=== PATIENT | female | born 1990 | race Caucasian/White ===

== ENCOUNTER 2016-06-09 16:08 | Emergency (ER) | payer MEDICAID ==
[2016-06-09] MEDS ORDERED: NS 1,000 ML IV ONE ×3 (17:05→17:46)
[2016-06-09] MEDS ORDERED: ONDANSETRON 4 MG/2 ML VIAL IVP ONE (17:46)
--- NOTE | 2016-06-09 17:49 | EDPHY ---
H & P Time Seen by Provider: 06/09/16 16:54 HPI/ROS: Chief complaint. Vomiting HPI. 25-year-old female vomiting that began today. Unable to keep fluids and seizure medication down. Her and infant child are both sick with similar symptoms. No abdominal pain no diarrhea. Otherwise no recent travel. ROS Constitutional. Subjective fever Eyes. no problems with vision ENT. no sore throat, no nasal drainage Cardiovascular. no chest pain Respiratory. no shortness of breath, no cough Abdominal. Nausea and vomiting . no problems urinating MS. no calf pain/swelling, no neck/back pain, no joint pain Skin. no rash Lymph. no swollen glands Neuro. no headache, no dizziness, no difficulty walking or with speech Past Medical/Surgical History: Celiac disease and seizure disorder Social History: , nonsmoker, no alcohol Smoking Status: Former smoker Physical Exam: General Appearance: Alert well-developed female mild distress vital signs show a heart rate 122 Eyes: Pupils equal and round no pallor or injection. ENT, mucous membranes are dry Respiratory: There are no retractions, lungs are clear to auscultation. Cardiovascular: Regular rate and rhythm. Gastrointestinal: Abdomen is soft and nontender, no masses, bowel sounds normal. Neurological: Awake and alert, sensory and motor exams grossly normal. Skin: Warm and dry, no rashes. Musculoskeletal: Neck is supple nontender. Extremities symmetrical, full range of motion. Psychiatric: Patient is oriented X 3, there is no agitation. Constitutional: Initial Vital Signs Temperature (C) 37.2 C 06/09/16 16:19 Heart Rate 122 H 06/09/16 16:19 Respiratory Rate 20 06/09/16 16:19 Blood Pressure 101/70 06/09/16 16:19 O2 Sat (%) 98 06/09/16 16:19 O2 Delivery Mode Room Air Allergies/Adverse Reactions: cefaclor [From Ceclor] Allergy (Verified 06/09/16 16:17) gluten Allergy (Verified 06/09/16 16:17) sulfamethoxazole [From Septra] Allergy (Verified 06/09/16 16:17) trimethoprim [From Janra] Allergy (Verified 06/09/16 16:17) Home Medications: Medication Instructions Recorded Ondansetron Odt [Zofran Odt] 4 mg PO Q4PRN PRN #4 tab 06/09/16 Trileptal 06/09/16 Medical Decision Making Procedures: IV normal saline with initial target of 2 L. Zofran for nausea ED Course/Re-evaluation: Re-evaluation at 7:20 p.m.. Patient has had 3 L of fluid. She has been up to the bathroom to urinate. She is taking oral fluids without nausea or vomiting. She is feeling better Patient and I discussed laboratory evaluation, treatment plan including criteria for return importance of follow-up further evaluation. She expresses understanding and agreement Differential Diagnosis: The patient's family is ill and I suspect that this is a gastroenteritis type picture. I did consider appendicitis and other cause of acute abdomen. I considered dehydration as well as electrolyte abnormalities. - Data Points Laboratory Results: Laboratory Results 06/09/16 16:34 06/09/16 16:34 06/09/16 16:34 WBC 7.59 10^3/uL (3.80-9.50) RBC 4.73 10^6/uL (4.18-5.33) Hgb 16.0 g/dL (12.6-16.3) Hct 44.0 % (38.0-47.0) MCV 93.0 fL (81.5-99.8) MCH 33.8 pg (27.9-34.1) MCHC 36.4 g/dL (32.4-36.7) RDW 11.9 % (11.5-15.2) Plt Count 230 10^3/uL (150-400) MPV 10.8 fL (8.7-11.7) Neut % (Auto) 90.6 H % (39.3-74.2) Lymph % (Auto) 3.8 L % (15.0-45.0) [place] % (Auto) 4.7 % (4.5-13.0) Eos % (Auto) 0.3 L % (0.6-7.6) Baso % (Auto) 0.3 % (0.3-1.7) Nucleat RBC Rel Count 0.0 % (0.0-0.2) Absolute Neuts (auto) 6.88 H 10^3/uL (1.70-6.50) Absolute Lymphs (auto) 0.29 L 10^3/uL (1.00-3.00) Absolute Monos (auto) 0.36 10^3/uL (0.30-0.80) Absolute Eos (auto) 0.02 L 10^3/uL (0.03-0.40) Absolute Basos (auto) 0.02 10^3/uL (0.02-0.10) Absolute Nucleated RBC 0.00 10^3/uL (0-0.01) Immature Gran % 0.3 % (0.0-1.1) Immature Gran # 0.02 10^3/uL (0.00-0.10) Sodium 137 mEq/L (134-144) Potassium 3.6 mEq/L (3.5-5.2) Chloride 104 mEq/L (97-110) Carbon Dioxide 19 L mEq/l (22-31) Anion Gap 14 mEq/L (8-16) BUN 13 mg/dL (7-23) Creatinine 0.8 mg/dL (0.6-1.0) Estimated GFR > 60 Glucose 71 mg/dL (70-100) Calcium 8.9 mg/dL (8.5-10.4) Medications Given: Discontinued Medications Sodium Chloride (Ns) 1,000 mls @ 0 mls/hr IV ONCE ONE PRN Reason: Wide Open Stop: 06/09/16 17:06 Last Admin: 06/09/16 17:05 Dose: 1,000 mls Sodium Chloride (Ns) 1,000 mls @ 0 mls/hr IV ONCE ONE PRN Reason: Wide Open Stop: 06/09/16 17:47 Last Admin: 06/09/16 18:02 Dose: 1,000 mls Sodium Chloride (Ns) 1,000 mls @ 0 mls/hr IV ONCE ONE PRN Reason: Wide Open Stop: 06/09/16 17:47 Last Admin: 06/09/16 19:05 Dose: 1,000 mls Ondansetron HCl (Zofran) 4 mg IVP EDNOW ONE Stop: 06/09/16 17:47 Last Admin: 06/09/16 18:03 Dose: 4 mg Departure - Departure Disposition: Home, Routine, Self-Care Clinical Impression: Acute gastroenteritis, Dehydration Condition: Good Instructions: Gastroenteritis (ED) Additional Instructions: Frequent, small sips fluids. Gradual diet advancement. Zofran as needed for nausea vomiting. Return for worsening symptoms. Recheck in 1-2 days if not continuing to improve Referrals: NONE *PRIMARY CARE P,. [Primary Care Provider] - As per Instructions Howard Santacruz MD [Medical Doctor] - As per Instructions Prescriptions: Ondansetron Odt [Zofran Odt] 4 mg PO Q4PRN PRN #4 tab PRN Reason: Nausea/Vomiting, Use 1st
[2016-06-09 17:53] LABS: % IMMATURE GRANULYOCYTES 0.3 % (0.0-1.1); ABSOLUTE IMMATURE GRANULOCYTES 0.02 10^3/uL (0.00-0.10); ADD DIFF? NO; ADD MORPH? NO; ADD SCAN? NO; ATYPICAL LYMPHOCYTE FLAG 0 (0-99); FRAGMENT RBC FLAG 0 (0-99); LEFT SHIFT FLG 0 (0-99); LIPEMIA HEMOLYSIS FLAG 90 (0-99); MEAN CELL HEMOGLOBIN 33.8 pg (27.9-34.1); MEAN CELL HEMOGLOBIN CONCENTR. 36.4 g/dL (32.4-36.7); MEAN PLATELET VOLUME 10.8 fL (8.7-11.7); PLATELET CLUMPS FLAG 0 (0-99); PLATELET COUNT 230 10^3/uL (150-400); RED BLOOD CELL COUNT 4.73 10^6/uL (4.18-5.33); RED CELL DISTRIBUTION WIDTH 11.9 % (11.5-15.2)
[2016-06-09 17:58] LABS: ANION GAP 14 mEq/L (8-16); CALCIUM 8.9 mg/dL (8.5-10.4); CARBON DIOXIDE 19 mEq/l (22-31); CHLORIDE 104 mEq/L (97-110); CREATININE 0.8 mg/dL (0.6-1.0); GLOMERULAR FILTRATION RATE > 60; GLUCOSE 71 mg/dL (70-100); POTASSIUM 3.6 mEq/L (3.5-5.2); SODIUM 137 mEq/L (134-144)
[2016-06-09] MEDS ORDERED: ONDANSETRON 4MG PREPACK#2 BTL TAKEHOME ONE (19:30)
[2016-06-09 19:48] VITALS: BP 92/42; PULSE 100; RESP 14; TEMP 99; O2SAT 98
== END 2016-06-09 19:53 | disposition home or self-care (01) ==
DX: K52.9 Noninfective gastroenteritis and colitis, unspecified (principal); E86.0 Dehydration; Z87.891 Personal history of nicotine dependence
CPT/HCPCS: 96374; J2405

== ENCOUNTER 2016-11-17 20:53 | Emergency (ER) | payer MEDICAID ==
[2016-11-17 20:59] VITALS: RESP 16; O2SAT 97
[2016-11-17 21:52] LABS: % IMMATURE GRANULYOCYTES 0.2 % (0.0-1.1); ABSOLUTE IMMATURE GRANULOCYTES 0.01 10^3/uL (0.00-0.10); ADD DIFF? NO; ADD MORPH? NO; ADD SCAN? NO; ATYPICAL LYMPHOCYTE FLAG 50 (0-99); FRAGMENT RBC FLAG 0 (0-99); HEMATOCRIT 38.6 % (38.0-47.0); HEMOGLOBIN 13.5 g/dL (12.6-16.3); LEFT SHIFT FLG 0 (0-99); LIPEMIA HEMOLYSIS FLAG 90 (0-99); MEAN CELL HEMOGLOBIN 33.9 pg (27.9-34.1); PLATELET CLUMPS FLAG 0 (0-99); PLATELET COUNT 217 10^3/uL (150-400); RED BLOOD CELL COUNT 3.98 10^6/uL (4.18-5.33); RED CELL DISTRIBUTION WIDTH 11.9 % (11.5-15.2)
[2016-11-17 22:07] LABS: ANION GAP 11 mEq/L (8-16); CALCIUM 9.3 mg/dL (8.5-10.4); CARBON DIOXIDE 24 mEq/l (22-31); CHLORIDE 105 mEq/L (97-110); CREATININE 0.9 mg/dL (0.6-1.0); GLOMERULAR FILTRATION RATE > 60; GLUCOSE 80 mg/dL (70-100); POTASSIUM 3.9 mEq/L (3.5-5.2); SODIUM 140 mEq/L (134-144)
--- NOTE | 2016-11-17 22:07 | CPEKG ---
Heart Rate: 45 RR Interval: 1333 P-R Interval: 164 QRSD Interval: 76 QT Interval: 412 QTC Interval: 357 P [place]: 45 QRS [place]: 77 T Wave [place]: 52 EKG Severity - OTHERWISE NORMAL ECG - EKG Impression: SINUS BRADYCARDIA Electronically Signed By: Caitlin Rojas 18-Nov-2016 00:24:17
[2016-11-17] MEDS ORDERED: NS 1,000 ML IV ONE (22:36)
[2016-11-17] MEDS ORDERED: levETIRAcetam 500 MG TAB PO ONE (23:35)
--- NOTE | 2016-11-17 23:38 | EDPHY ---
H & P Stated Complaint: sz earlier today, no longer taking sz meds - Personal History Tetanus Vaccine Date: 06/29/15 - Medical/Surgical History Hx Asthma: No Hx Chronic Respiratory Disease: No Hx Diabetes: No Hx Cardiac Disease: No Hx Renal Disease: No Hx Cirrhosis: No Hx Alcoholism: No Hx HIV/AIDS: No Hx Splenectomy or Spleen Trauma: No Other PMH: epilepsy, celiac, cholecystectomy - Social History Smoking Status: Former smoker Time Seen by Provider: 11/17/16 21:35 HPI/ROS: Chief complaint: Seizure History of present illness: This is a 26-year-old female who presents to the emergency department for a seizure. Patient reports she has suffered from seizures since she was a child. She suffers from grand mal seizures. She apparently had 1 today witnessed by her children. She does not remember the event. However when she finally woke up from the seizure she felt the way she does after she has a seizure. She is very fatigued. She did bite her tongue[place] Her Children's b2b sales manager drove her to the hospital. She states she has had a neurologist in [place] but because she live so far in the [facility] and has 2 young kids it is extremely difficult to get down and see the neurologist. She is not currently on any antiseizure medicine. She has been on Trileptal in the past. She would like to start antiseizure medications again but is wondering if there is a seizure medicine she can take while breast-feeding. She has no other complaints at this time. Review of systems: A 10 point review of systems was obtained and other than described above was negative (Esvin Boothe) - Physical Exam Exam: General Appearance: Alert, nontoxic. Eyes: Pupils equal and round no pallor or injection. ENT, Mouth: Mucous membranes moist. Evidence of tongue biting noted. Respiratory: There are no retractions, lungs are clear to auscultation. Cardiovascular: Regular rate and rhythm. Gastrointestinal: Abdomen is soft and nontender, no masses, bowel sounds normal. Neurological: Alert and oriented x4. Cranial nerves 2-12 grossly intact. Strength and sensation intact and symmetrical. No pronator drift. No meningismus. She is ambulating without difficulty. Skin: Warm and dry, no rashes. Musculoskeletal: The head is nontender. The spine is nontender. Patient moving all extremities well. Psychiatric: Patient is oriented X 3, there is no agitation. (Esvin Boothe) Constitutional: Initial Vital Signs Temperature (C) 36.8 C 11/17/16 20:56 Heart Rate 61 11/17/16 20:56 Respiratory Rate 16 11/17/16 20:56 Blood Pressure 100/51 L 11/17/16 20:56 O2 Sat (%) 97 11/17/16 20:56 O2 Delivery Mode Room Air Allergies/Adverse Reactions: cefaclor [From Ceclor] Allergy (Verified 11/17/16 20:59) gluten Allergy (Verified 11/17/16 20:59) sulfamethoxazole [From Septra] Allergy (Verified 11/17/16 20:59) trimethoprim [From Septra] Allergy (Verified 11/17/16 20:59) Home Medications: Medication Instructions Recorded Trileptal 06/09/16 levETIRAcetam [Keppra 500 mg (*)] 500 mg PO BID 30 Days 11/17/16 Medical Decision Making - Diagnostics EKG Interpretation: 12 lead EKG is interpreted in Trace master View by emergency department physician. (Caitlin Rojas) ED Course/Re-evaluation: Patient is discussed with my secondary supervising physician Dr. Caitlin Rojas. Patient presents to the emergency department after apparently having a grand mal seizure earlier today. On presentation she is nontoxic. Afebrile and vital signs are stable. She has a nonfocal neurologic exam. Her physical exam is benign other than evidence of tongue biting. Blood studies and EKG unremarkable. I do not appreciate need for further emergency department intervention or inpatient management. Patient has a long-standing history of epilepsy. She lives [place] in the [facility] with her 2 young children. She is not able to make it to [place] to see a neurologist on a regular basis. She is therefore not on any anti seizure medications. She would like to start antiseizure medication. However, she is trying to breastfeed her [id number]. I have consulted with [facility]. Dr. Nova. She recommends starting patient on Keppra with a loading dose of a 1000 mg orally and then 500 mg twice daily. We have discussed breast-feeding, Keppra is of questionable safety. There are not many good choices for seizure medications in breast- feeding. I have discussed with the patient that I would strongly recommend she start antiseizure medications given she is having a seizure once a month and [place] setting. I further discussed not breast-feeding until she can discuss it at length with Neurology. She is comfortable with this plan. I am comfortable with her being discharged home. Seizure precautions have been discussed at length. Her b2b sales manager will drive her home. Her cousin who is 35 years old lives with her so there is another adult in the house. She is referred to our neurologist in hopes that since they are closer to her she can see them on a regular basis. I have also talked with case management to follow up with her to help her with any needs after discharge. Return precautions are given. (Esvin Boothe) The patient was evaluated and managed by the physician clerical assistant. I have reviewed this chart and I agree with the findings and plan of care as documented , as indicated by my signature. I am the secondary supervising physician. ( Caitlin Rojas) Differential Diagnosis: Included but not limited to seizures of multiple etiologies and seizure secondary to epilepsy, trauma, tumor, , toxins (Esvin Boothe) - Data Points Laboratory Results: Laboratory Results 11/17/16 21:45 11/17/16 21:45 Medications Given: Discontinued Medications Sodium Chloride (Ns) 1,000 mls @ 0 mls/hr IV ONCE ONE PRN Reason: Wide Open Stop: 11/17/16 22:37 Last Admin: 11/17/16 22:30 Dose: 1,000 mls Levetiracetam (Keppra) 1,000 mg PO EDNOW ONE Stop: 11/17/16 23:36 Last Admin: 11/17/16 23:44 Dose: 1,000 mg Departure - Departure Disposition: Home, Routine, Self-Care Clinical Impression: Seizure Condition: Good Instructions: Recurrent Seizures in Adults (ED) Additional Instructions: Follow-up with Neurology for continued evaluation and care Take seizure medications as prescribed We recommend you DO NOT breast-feed while on the seizure medications, talk to Neurology about breast-feeding and using seizure medications You must maintain seizure precautions, do not drive, operate machinery, bathe or swim or perform other activities where if he had a seizure you could hurt or kill yourself for another person The feel any symptoms are worsening return to the emergency room for recheck Referrals: NONE *PRIMARY CARE P,. [Primary Care Provider] - As per Instructions Jax Oates DO [Medical Doctor] - As per Instructions Efraín Alfaro MD [Medical Doctor] - As per Instructions Prescriptions: levETIRAcetam [Keppra 500 mg (*)] 500 mg PO BID 30 Days
[2016-11-18 00:10] VITALS: BP 101/62; PULSE 56; TEMP 98.1
== END 2016-11-18 00:11 | disposition home or self-care (01) ==
DX: G40.909 Epilepsy, unspecified, not intractable, without status epilepticus (principal); Z87.891 Personal history of nicotine dependence

== ENCOUNTER 2016-11-24 19:11 | Emergency (ER) | payer MEDICAID ==
[2016-11-24 19:28] VITALS: RESP 16; TEMP 98.4; O2SAT 95
--- NOTE | 2016-11-24 19:49 | EDPHY ---
H & P Time Seen by Provider: 11/24/16 19:39 HPI/ROS: Chief complaint. Seizure HPI. 26-year-old female with long-standing seizure disorder since childhood had a seizure today. We saw her in the emergency department a week ago on November 17 for a seizure. At that time she had been off her anticonvulsant medication. She was breast feeding. The workup was normal per. She has a neurologist in [place] though because she lives remotely has not seen. [facility] was consulted and recommended Keppra 500 mg twice daily and to try to stop breast-feeding. She was referred to Dr. marcos, local neurologist though has not seen him since. She did not start the Keppra until 4 days ago. She is a single mom going through separation and is exhausted not getting much sleep and then had apparent generalized tonic-clonic type seizure today. She did bite her tongue. Otherwise she has had no recent illness or head injury. ROS Constitutional. no fever/chills, no weakness Eyes. no problems with vision ENT. Bit tongue Cardiovascular. no chest pain Respiratory. no shortness of breath, no cough Abdominal. no abdominal pain, no nausea/vomiting, no diarrhea . no problems urinating MS. Left calf pain since seizure. no neck/back pain, no joint pain Skin. no rash Lymph. no swollen glands Neuro. Seizure Past Medical/Surgical History: Seizure disorder, celiac disease, cholecystectomy Social History: , nonsmoker, no alcohol Smoking Status: Former smoker Physical Exam: General Appearance: Alert well-developed female mild distress vital signs stable Eyes: Pupils equal and round no pallor or injection. ENT, tongue bite on the right lateral aspect of her tongue Respiratory: There are no retractions, lungs are clear to auscultation. Cardiovascular: Regular rate and rhythm. Gastrointestinal: Abdomen is soft and nontender, no masses, bowel sounds normal. Neurological: Awake and alert, sensory and motor exams grossly normal. Skin: Warm and dry, no rashes. Musculoskeletal: Neck is supple nontender. Extremities tenderness to palpation left calf muscle but no tenderness to the knee or to the palpation of the tibia and fibula. No obvious swelling or surface trauma Psychiatric: Patient is oriented X 3, there is no agitation. Constitutional: Initial Vital Signs Temperature (C) 36.9 C 11/24/16 19:24 Heart Rate 54 L 11/24/16 19:24 Respiratory Rate 16 11/24/16 19:24 Blood Pressure 103/45 L 11/24/16 19:24 O2 Sat (%) 95 11/24/16 19:24 O2 Delivery Mode Room Air Allergies/Adverse Reactions: cefaclor [From Ceclor] Allergy (Verified 11/17/16 20:59) gluten Allergy (Verified 11/17/16 20:59) sulfamethoxazole [From Septra] Allergy (Verified 11/17/16 20:59) trimethoprim [From Septra] Allergy (Verified 11/17/16 20:59) Home Medications: Medication Instructions Recorded levETIRAcetam [Keppra 500 mg (*)] 500 mg PO BID 30 Days 11/17/16 LEVETIRACETAM [Keppra 1000 mg] 1,000 mg PO BID #30 tab 11/24/16 Medical Decision Making Procedures: IV normal saline. Seizure precautions ED Course/Re-evaluation: I consulted and discussed the case with [facility] who recommends increasing the patient's dose from 500 twice daily to a 1000 mg twice daily. They recommend 1 g orally now in the ED and then prescription for 1000 mg twice daily. 8:15 p.m. I have discussed this with the patient. She expresses understanding and agreement. Re-evaluation again at 9:00 p.m. patient is stable. We discussed treatment plan , criteria for return importance of follow-up and keeping her follow-up appointment with Neurology. We also discussed driving precautions and other dangerous activity precautions. She expresses understanding and agreement Differential Diagnosis: Patient has longstanding seizure disorder. Sugars had no recent head injury or illness to suggest meningitis. Patient is taking a lobe maintenance dose of Keppra and the recommendation is to increase the Keppra dose. - Data Points Laboratory Results: Laboratory Results 11/24/16 20:14 11/24/16 20:14 11/24/16 11/24/16 11/24/16 20:14 20:14 20:14 WBC 7.46 10^3/uL 10^3/uL (3.80-9.50) RBC 4.04 10^6/uL L 10^6/uL (4.18-5.33) Hgb 13.6 g/dL g/dL (12.6-16.3) Hct 37.1 % L % (38.0-47.0) MCV 91.8 fL fL (81.5-99.8) MCH 33.7 pg pg (27.9-34.1) MCHC 36.7 g/dL g/dL (32.4-36.7) RDW 11.7 % % (11.5-15.2) Plt Count 208 10^3/uL 10^3/uL (150-400) MPV 10.0 fL fL (8.7-11.7) Neut % (Auto) 74.3 % H % (39.3-74.2) Lymph % (Auto) 19.4 % % (15.0-45.0) [place] % (Auto) 5.2 % % (4.5-13.0) Eos % (Auto) 0.3 % L % (0.6-7.6) Baso % (Auto) 0.5 % % (0.3-1.7) Nucleat RBC Rel Count 0.0 % % (0.0-0.2) Absolute Neuts (auto) 5.54 10^3/uL 10^3/uL (1.70-6.50) Absolute Lymphs (auto) 1.45 10^3/uL 10^3/uL (1.00-3.00) Absolute Monos (auto) 0.39 10^3/uL 10^3/uL (0.30-0.80) Absolute Eos (auto) 0.02 10^3/uL L 10^3/uL (0.03-0.40) Absolute Basos (auto) 0.04 10^3/uL 10^3/uL (0.02-0.10) Absolute Nucleated RBC 0.00 10^3/uL 10^3/uL (0-0.01) Immature Gran % 0.3 % % (0.0-1.1) Immature Gran # 0.02 10^3/uL 10^3/uL (0.00-0.10) Sodium 132 mEq/L L mEq/L (134-144) Potassium 3.5 mEq/L mEq/L (3.5-5.2) Chloride 101 mEq/L mEq/L (97-110) Carbon Dioxide 18 mEq/l L mEq/l (22-31) Anion Gap 13 mEq/L mEq/L (8-16) BUN 7 mg/dL mg/dL (7-23) Creatinine 0.8 mg/dL mg/dL (0.6-1.0) Estimated GFR > 60 Glucose 85 mg/dL mg/dL (70-100) Calcium 9.5 mg/dL mg/dL (8.5-10.4) Beta HCG, Qual NEGATIVE Medications Given: Discontinued Medications Sodium Chloride (Ns) 1,000 mls @ 0 mls/hr IV EDNOW ONE; Wide Open PRN Reason: Protocol Stop: 11/24/16 20:04 Last Admin: 11/24/16 20:14 Dose: 1,000 mls Levetiracetam (Keppra) 1,000 mg PO EDNOW ONE Stop: 11/24/16 20:14 Last Admin: 11/24/16 20:22 Dose: 1,000 mg Departure - Departure Disposition: Home, Routine, Self-Care Clinical Impression: Seizure disorder, Seizure Condition: Good Instructions: Epilepsy (ED) Additional Instructions: Increase Keppra to 1000 mg twice daily. No driving or other dangerous activity until cleared by Neurology. Keep your appointment next week with neurologist. Return for further seizures. Referrals: NONE *PRIMARY CARE P,. [Primary Care Provider] - As per Instructions Jax Oates DO [Medical Doctor] - As per Instructions Prescriptions: LEVETIRACETAM [Keppra 1000 mg] 1,000 mg PO BID #30 tab
[2016-11-24] MEDS ORDERED: NS 1,000 ML IV ONE (20:03)
[2016-11-24] MEDS ORDERED: levETIRAcetam 500 MG TAB PO ONE (20:13)
[2016-11-24 20:25] LABS: % IMMATURE GRANULYOCYTES 0.3 % (0.0-1.1); ABSOLUTE IMMATURE GRANULOCYTES 0.02 10^3/uL (0.00-0.10); ADD DIFF? NO; ADD MORPH? NO; ADD SCAN? NO; ATYPICAL LYMPHOCYTE FLAG 20 (0-99); FRAGMENT RBC FLAG 0 (0-99); HEMATOCRIT 37.1 % (38.0-47.0); HEMOGLOBIN 13.6 g/dL (12.6-16.3); LEFT SHIFT FLG 0 (0-99); LIPEMIA HEMOLYSIS FLAG 90 (0-99); MEAN CELL HEMOGLOBIN 33.7 pg (27.9-34.1); MEAN CELL HEMOGLOBIN CONCENTR. 36.7 g/dL (32.4-36.7); MEAN CELL VOLUME 91.8 fL (81.5-99.8); PLATELET CLUMPS FLAG 0 (0-99); PLATELET COUNT 208 10^3/uL (150-400); RED BLOOD CELL COUNT 4.04 10^6/uL (4.18-5.33); RED CELL DISTRIBUTION WIDTH 11.7 % (11.5-15.2)
[2016-11-24 20:46] LABS: ANION GAP 13 mEq/L (8-16); CALCIUM 9.5 mg/dL (8.5-10.4); CARBON DIOXIDE 18 mEq/l (22-31); CHLORIDE 101 mEq/L (97-110); CREATININE 0.8 mg/dL (0.6-1.0); GLOMERULAR FILTRATION RATE > 60; GLUCOSE 85 mg/dL (70-100); POTASSIUM 3.5 mEq/L (3.5-5.2); SODIUM 132 mEq/L (134-144)
[2016-11-24 21:29] VITALS: BP 101/52; PULSE 51
== END 2016-11-24 21:29 | disposition home or self-care (01) ==
DX: G40.909 Epilepsy, unspecified, not intractable, without status epilepticus (principal); E86.9 Volume depletion, unspecified; Z87.891 Personal history of nicotine dependence

== ENCOUNTER 2017-09-10 12:50 | Emergency (ER) | payer MEDICAID ==
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
[2017-09-10] MEDS ORDERED: ONDANSETRON 4 MG/2 ML VIAL IVP ONE (14:34)
[2017-09-10] MEDS ORDERED: HYDROmorphONE/DILAUDID 2 MG/ML INJ IVP ONE (14:34)
[2017-09-10] MEDS ORDERED: KETOROLAC 30 MG/1 ML SDV IVP ONE (14:34)
[2017-09-10 14:41] LABS: PLATELET COUNT 221 10^3/uL (150-400)
[2017-09-10 14:48] LABS: INR 0.97 (0.83-1.16); PROTIME(PATIENT) 13.1 SEC (12.0-15.0)
[2017-09-10 18:18] VITALS: BP 99/56
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
== END 2017-09-10 18:18 | disposition home or self-care (01) ==
DX: N93.9 Abnormal uterine and vaginal bleeding, unspecified (principal); Z90.49 Acquired absence of other specified parts of digestive tract
CPT/HCPCS: 96374; J1170; J1885; J2405

== ENCOUNTER 2018-09-06 15:38 | Emergency (ER) | payer MEDICAID ==
--- NOTE | 2018-09-06 16:10 | EDPHY ---
H & P Time Seen by Provider: 09/06/18 16:00 HPI/ROS: Chief complaint. Low back pain HPI. 27-year-old female with low back pain after a fall. Yesterday she was standing on a dresser to change a light bulb. She has lost her balance and fell landing on her low back. She did not strike her head or lose consciousness. She has occasional numbness to the left thigh and hip area. Tenderness in the low back. Increased pain with range of motion. No history chronic low back. No chest pain or shortness of breath. No abdominal pain. ROS 10 systems were reviewed and negative with the exception of the elements mentioned in the history of present illness Past Medical/Surgical History: Seizure disorder, celiac disease, cholecystectomy Social History: Single, nonsmoker, no alcohol Smoking Status: Former smoker Physical Exam: General Appearance: A female mild distress vital signs are stable Eyes: Pupils equal and round no pallor or injection. ENT, Mouth: Mucous membranes are moist. Respiratory: There are no retractions, lungs are clear to auscultation. Cardiovascular: Regular rate and rhythm. Gastrointestinal: Abdomen is soft and nontender, no masses, bowel sounds normal. Neurological: Awake and alert, sensory and motor exams grossly normal. Skin: Warm and dry, no rashes. Musculoskeletal: Neck is supple nontender. No thoracic pain. Low lumbar and sacral pain to palpation. No evidence for surface trauma Extremities symmetrical, full range of motion. Psychiatric: Patient is oriented X 3, there is no agitation. Constitutional: Initial Vital Signs Temperature (C) 37.4 C 09/06/18 15:42 Heart Rate 63 09/06/18 15:42 Respiratory Rate 18 09/06/18 15:42 Blood Pressure 124/77 H 09/06/18 15:42 O2 Sat (%) 98 09/06/18 15:42 O2 Delivery Mode Room Air Allergies/Adverse Reactions: cefaclor [From Ceclor] Allergy (Verified 09/10/17 13:00) gluten Allergy (Verified 09/10/17 13:00) sulfamethoxazole [From Septra] Allergy (Verified 09/10/17 13:00) trimethoprim [From Septra] Allergy (Verified 09/10/17 13:00) Home Medications: Medication Instructions Recorded Trileptal 09/10/17 Diazepam [Valium] 5 mg PO Q6PRN PRN #7 tab 09/06/18 Medical Decision Making - Diagnostics Imaging Results: X-ray lumbar spine, sacrum and coccyx interpreted by me is normal Procedures: Ibuprofen ED Course/Re-evaluation: Re-evaluation 4:35 p.m.. Patient and I discussed imaging study results, treatment plan including criteria for return importance of follow-up and further evaluation. She expresses understanding and agreement - Data Points Medications Given: Discontinued Medications Ibuprofen (Motrin) 600 mg PO EDNOW ONE Stop: 09/06/18 16:08 Last Admin: 09/06/18 16:21 Dose: 600 mg Departure - Departure Disposition: Home, Routine, Self-Care Clinical Impression: Lumbar strain Qualifiers: Encounter type: initial encounter Qualified Code(s): S39.012A - Strain of muscle, fascia and tendon of lower back, initial encounter Condition: Good Instructions: Contusion in Adults (ED) Additional Instructions: Ice to sore area next 24 hr Ibuprofen 600 mg every 6 hr for pain Valium as muscle relaxer Return for worsening pain, leg weakness, bowel or bladder symptoms Recheck in 2-3 days if not improving Referrals: [facility] [Other] - 2-3 days, if not improved Prescriptions: Diazepam [Valium] 5 mg PO Q6PRN PRN #7 tab PRN Reason: For Muscle Spasms
[2018-09-06] MEDS: IBUPROFEN 600 MG TAB PO ONE (16:21)
[2018-09-06 17:12] VITALS: BP 100/75
== END 2018-09-06 17:12 | disposition home or self-care (01) ==
LOC: EEVIPCON 15:38
DX: S39.012A Strain of muscle, fascia and tendon of lower back, initial encounter (principal); W17.89XA Other fall from one level to another, initial encounter; Y92.009 Unspecified place in unspecified non-institutional (private) residence as the place of occurrence of the external cause

== ENCOUNTER 2018-10-06 15:21 | Emergency (ER) | payer MEDICAID | END 2018-10-06 17:39 | disposition home or self-care (01) ==